=== PATIENT | female | born 1995 | race African-American/Black ===

== ENCOUNTER 2021-06-18 18:01 | Emergency (ER) | payer MEDICAID ==
[~2021-06-18] VITALS: Ht 167.6 cm; Wt 93.0 kg
[2021-06-18] MEDS ORDERED: OLANZAPINE 5MG TABLET ODT PO ONE (19:45)
[2021-06-18] MEDS ORDERED: DIPHENHYDRAMINE 50MG/ML VIAL IM STA (20:28)
[2021-06-18] MEDS ORDERED: OLANZAPINE 10 MG/VIAL IM STA (20:28)
[2021-06-18 23:58] LABS: EOSINOPHILS % 1.3 % (0.0-5.0); HEMATOCRIT. 40.5 % (36.0-48.0); HEMOGLOBIN. 13.3 g/dL (12.0-16.0); LYMPHOCYTES % 34.9 % (20.0-50.0); MEAN CORPUSCULAR HEMOGLOBIN 28.5 pg (28.0-32.0); MEAN CORPUSCULAR VOLUME 86.4 fL (81.0-99.0); MEAN PLATELET VOLUME 7.9 fl (7.4-10.4); MONOCYTES % 7.5 % (2.0-8.0); NEUTROPHILS % 55.3 % (40.0-76.0); PLATELET 290 x1000/uL (130-400); RED BLOOD CELL COUNT 4.69 mill/uL (4.2-5.4); RED CELL DISTRIBUTION WIDTH 14.1 % (11.6-14.6)
[2021-06-19 00:05] LABS: CLARITY URINE CLEAR (CLEAR); COLOR URINE YELLOW (YELLOW); KETONES URINE TRACE (NEGATIVE); LEUKOCYTE ESTERASE URINE TRACE (NEGATIVE); NITRITE URINE NEGATIVE (NEGATIVE); OCCULT BLOOD URINE NEGATIVE (NEGATIVE); PH URINE 7.5 (4.5-8.0); PROTEIN URINE NEGATIVE (NEGATIVE); SPECIFIC GRAVITY URINE 1.027 (1.005-1.030)
[2021-06-19 00:09] LABS: CHLORIDE 108 mEq/L (98-107)
[2021-06-19 00:17] LABS: ETHANOL BLOOD < 10 mg/dL
[2021-06-19 00:24] LABS: METHADONE URINE SCREEN NEGATIVE (NEGATIVE); OPIATES URINE SCREEN NEGATIVE (NEGATIVE)
[2021-06-19 00:25] LABS: *BARBITURATES SCREEN URINE NEGATIVE (NEGATIVE); *BENZODIAZEPINES SCREEN URINE NEGATIVE (NEGATIVE); PHENCYCLIDINE URINE SCREEN NEGATIVE (NEGATIVE)
[2021-06-19 00:35] LABS: *AMPHETAMINES SCREEN URINE PRESUMTIVE POSITIVE (NEGATIVE); *COCAINE SCREEN URINE PRESUMTIVE POSITIVE (NEGATIVE); CANNABINOID URINE SCREEN PRESUMTIVE POSITIVE (NEGATIVE)
[2021-06-19] MEDS ORDERED: POTASSIUM CHLORIDE 20MEQ TABLET SR PO SCH (01:00)
[2021-06-19] MEDS ORDERED: IBUPROFEN 600MG TABLET PO ONE (04:00)
[2021-06-19 13:59] VITALS: BP 118/67
== END 2021-06-19 14:01 | disposition home or self-care (01) ==
LOC: ER 18:01
DX: U07.1 COVID-19 (principal); R45.851 Suicidal ideations; I49.9 Cardiac arrhythmia, unspecified; Z86.59 Personal history of other mental and behavioral disorders; Z88.0 Allergy status to penicillin
CPT/HCPCS: 36415; 80053; 80305; 80307; 80320; 80329; 81003; 81025; 82962; 85025; 87426; 93005; 99285; C9803; U0003; U0005; J1200; J3490; G0480

== ENCOUNTER 2022-01-03 14:49 | Emergency (ER) | payer MEDICAID ==
[~2022-01-03] VITALS: Ht 165.1 cm; Wt 91.0 kg
[2022-01-03] MEDS ORDERED: abilify (14:58)
[2022-01-03] MEDS ORDERED: CLINDAMYCIN 600 MG in DEXTROSE 5% WATER 50 ML IV ONE (15:30)
[2022-01-03] MEDS ORDERED: KETOROLAC 15MG/ML VIAL IV ONE (15:30)
[2022-01-03] MEDS ORDERED: DEXAMETHASONE 4MG/ML 1ML VIAL IV ONE (15:30)
[2022-01-03] MEDS ORDERED: SODIUM CHLORIDE 0.9% 1,000 ML IV ONE (15:30)
[2022-01-03] MEDS ORDERED: ACET-2708 MT (16:13)
[2022-01-03] MEDS ORDERED: IBUP-2029 MT (16:23)
[2022-01-03] MEDS ORDERED: CLIN300C12 MT (16:23)
[2022-01-03 19:10] VITALS: BP 115/87
== END 2022-01-03 19:19 | disposition home or self-care (01) ==
LOC: ER 14:57
DX: J02.9 Acute pharyngitis, unspecified (principal); I10 Essential (primary) hypertension; J45.909 Unspecified asthma, uncomplicated; F15.10 Other stimulant abuse, uncomplicated; F14.10 Cocaine abuse, uncomplicated; Z88.0 Allergy status to penicillin
CPT/HCPCS: 81025; 96365; 96375; 99284; J1100; J1885; J3490; J7030; J7060

== ENCOUNTER 2022-12-23 10:32 | Emergency (ER) | payer MEDICAID ==
[~2022-12-23] VITALS: Ht 167.6 cm; Wt 97.0 kg
[~2022-12-23 10:32] MED LIST: ACET-2708 MT; CLIN-194 MT; IBUP-2029 MT; abilify
[2022-12-23] MEDS ORDERED: ACETAMINOPHEN 325MG TABLET PO ONE (13:00)
[2022-12-23 14:26] VITALS: BP 135/90
[2022-12-23] MEDS ORDERED: DEXAMETHASONE 10 MG/ML VIAL IM ONE (14:30)
[2022-12-23] MEDS ORDERED: KETOROLAC 60MG/2ML VIAL IM ONE (14:30)
[2022-12-23] MEDS ORDERED: IBUP-2028 MT (15:36)
[2022-12-23] MEDS ORDERED: CLINDAMYCIN HCL 150MG CAPSULE PO STA (15:36)
[2022-12-23] MEDS ORDERED: CLIN-194 MT (15:36)
== END 2022-12-23 15:45 | disposition home or self-care (01) ==
LOC: ER 12:25
DX: J02.0 Streptococcal pharyngitis (principal); I10 Essential (primary) hypertension; J45.909 Unspecified asthma, uncomplicated; F14.10 Cocaine abuse, uncomplicated; F15.10 Other stimulant abuse, uncomplicated; Z98.890 Other specified postprocedural states; Z88.0 Allergy status to penicillin
CPT/HCPCS: 87430; 96372; 99284; J1100; J1885; Z7610

== ENCOUNTER 2023-09-17 21:25 | Emergency (ER) | payer MEDICAID ==
[~2023-09-17] VITALS: Ht 154.9 cm; Wt 87.0 kg
[~2023-09-17 21:25] MED LIST changes: +IBUP-2028 MT
[2023-09-17 21:37] VITALS: O2SAT 100
[2023-09-17] MEDS ORDERED: ASPIRIN 81MG TABLET PO ONE (23:00)
[2023-09-17] MEDS ORDERED: NITROGLYCERIN 0.4MG TABLET SL SL PRN (23:00)
[2023-09-18] LABS: BASOPHILS % 0.6 % (0.0-2.0); EOSINOPHILS % 3.1 % (0.0-5.0); HEMATOCRIT. 37.1 % (36.0-48.0); HEMOGLOBIN. 12.2 g/dL (12.0-16.0); LYMPHOCYTES % 35.2 % (20.0-50.0); MEAN CORPUSCULAR HEMOGLOBIN 28.8 pg (28.0-32.0); MEAN CORPUSCULAR HGB CONC 32.9 g/dL (31.0-37.0); MEAN CORPUSCULAR VOLUME 87.6 fL (81.0-99.0); MEAN PLATELET VOLUME 7.3 fl (7.4-10.4); MONOCYTES % 8.9 % (2.0-8.0); NEUTROPHILS % 52.2 % (40.0-76.0); PLATELET 260 x1000/uL (130-400); RED BLOOD CELL COUNT 4.23 mill/uL (4.2-5.4); RED CELL DISTRIBUTION WIDTH 14.1 % (11.6-14.6); WHITE BLOOD COUNT 7.5 x1000/uL (4.5-11.0)
[2023-09-18 00:05] LABS: CHLORIDE 108 mEq/L (98-107); INDEX HEMOLYSI 1 (1-3); INDEX ICTERIC 1 (1-4); INDEX LIPEMIC 1 (1-3); POTASSIUM 4.3 mEq/L (3.5-5.1); SODIUM 139 mEq/L (136-145)
[2023-09-18 00:16] LABS: ALANINE AMINOTRANSFERASE 17 IU/L (13-61); ALBUMIN 3.1 g/dL (3.4-5.0); ASPARTATE AMINOTRANSFERASE 13 IU/L (15-37); BILIRUBIN TOTAL 0.3 mg/dL (0.1-1.0); CALCIUM 8.1 mg/dL (8.5-10.1); CARBON DIOXIDE 31 mEq/L (21-32); CREATININE 0.8 mg/dL (0.6-1.3); GLUCOSE 94 mg/dL (70-105); HCG SCREEN NEGATIVE; NT PRO B-TYPE NATRIURETIC PEP 116 pg/mL (5-125); PROTEIN TOTAL 6.3 g/dL (6.0-8.3); TROPONIN I HIGH SENSITIVITY 5 ng/L (<54); UREA NITROGEN BLOOD 16 mg/dL (7-21)
[2023-09-18 02:38] LABS: TROPONIN I HIGH SENSITIVITY 5 ng/L (<54)
[2023-09-18 07:45] VITALS: BP 121/63; PULSE 72; RESP 15; TEMP 98.1
== END 2023-09-18 07:51 | disposition short-term general hospital (02) ==
LOC: ER 21:25
DX: R07.89 Other chest pain (principal); R45.851 Suicidal ideations; F14.10 Cocaine abuse, uncomplicated; F15.10 Other stimulant abuse, uncomplicated; Z88.0 Allergy status to penicillin
CPT/HCPCS: 80053; 81025; 84703; 83880; 85025; 84484 ×2; 36415 ×2; 71045; 93005 ×2; 99285; Z7610

== ENCOUNTER 2023-09-22 10:31 | Emergency (ER) | payer MEDICAID ==
[~2023-09-22] VITALS: Ht 167.6 cm; Wt 73.0 kg
[2023-09-22 10:42] VITALS: O2SAT 100
[2023-09-22 11:31] LABS: BASOPHILS % 0.4 % (0.0-2.0); HEMATOCRIT. 36.8 % (36.0-48.0); HEMOGLOBIN. 11.8 g/dL (12.0-16.0); LYMPHOCYTES % 20.7 % (20.0-50.0); MEAN CORPUSCULAR HEMOGLOBIN 28.4 pg (28.0-32.0); MEAN CORPUSCULAR VOLUME 88.8 fL (81.0-99.0); MEAN PLATELET VOLUME 7.4 fl (7.4-10.4); MONOCYTES % 8.7 % (2.0-8.0); NEUTROPHILS % 68.2 % (40.0-76.0); PLATELET 252 x1000/uL (130-400); RED BLOOD CELL COUNT 4.15 mill/uL (4.2-5.4); RED CELL DISTRIBUTION WIDTH 14.8 % (11.6-14.6); WHITE BLOOD COUNT 7.2 x1000/uL (4.5-11.0)
[2023-09-22 11:51] VITALS: BP 122/70; PULSE 93; RESP 18; TEMP 98.2
[2023-09-22 12:16] LABS: ALANINE AMINOTRANSFERASE 24 IU/L (10-49); ALBUMIN 3.6 g/dL (3.2-4.8); ASPARTATE AMINOTRANSFERASE 21 IU/L (<34); BILIRUBIN TOTAL 0.4 mg/dL (0.1-1.0); CALCIUM 8.7 mg/dL (8.7-10.4); CARBON DIOXIDE 26 mEq/L (21-32); CHLORIDE 106 mEq/L (98-107); CREATININE 0.7 mg/dL (0.6-1.0); GLUCOSE 79 mg/dL (70-105); POTASSIUM 4.4 mEq/L (3.5-5.1); PROTEIN TOTAL 5.8 g/dL (6.0-8.3); SODIUM 140 mEq/L (136-145); UREA NITROGEN BLOOD 14 mg/dL (9-23)
[2023-09-22 13:11] LABS: ETHANOL BLOOD < 10 mg/dL (<10)
[2023-09-22] MEDS ORDERED: TOPUD PO (14:13)
== END 2023-09-22 15:15 | disposition left against medical advice (07) ==
LOC: ER 10:59
DX: Z00.00 Encounter for general adult medical examination without abnormal findings (principal); M25.512 Pain in left shoulder; M25.511 Pain in right shoulder; F14.10 Cocaine abuse, uncomplicated; F15.10 Other stimulant abuse, uncomplicated; J45.909 Unspecified asthma, uncomplicated; I10 Essential (primary) hypertension; Z88.0 Allergy status to penicillin
CPT/HCPCS: 36415; 73030; 80053; 80320; 85025; 99284; G0480

== ENCOUNTER 2023-11-24 04:37 | Emergency (ER) | payer MEDICAID ==
[~2023-11-24] VITALS: Ht 170.2 cm; Wt 70.0 kg
[~2023-11-24 04:37] MED LIST changes: +TOPUD PO
[2023-11-24 04:38] VITALS: BP 153/104; PULSE 98; RESP 16; TEMP 98.5; O2SAT 98
[2023-11-24 05:17] LABS: BASOPHILS % 0.3 % (0.0-2.0); EOSINOPHILS % 1.4 % (0.0-5.0); HEMATOCRIT. 41.3 % (36.0-48.0); HEMOGLOBIN. 13.6 g/dL (12.0-16.0); LYMPHOCYTES % 33.1 % (20.0-50.0); MEAN CORPUSCULAR HEMOGLOBIN 29.1 pg (28.0-32.0); MEAN CORPUSCULAR HGB CONC 32.9 g/dL (31.0-37.0); MEAN CORPUSCULAR VOLUME 88.4 fL (81.0-99.0); MEAN PLATELET VOLUME 6.8 fl (7.4-10.4); MONOCYTES % 6.4 % (2.0-8.0); NEUTROPHILS % 58.8 % (40.0-76.0); PLATELET 373 x1000/uL (130-400); RED BLOOD CELL COUNT 4.67 mill/uL (4.2-5.4); RED CELL DISTRIBUTION WIDTH 14.3 % (11.6-14.6); WHITE BLOOD COUNT 8.2 x1000/uL (4.5-11.0)
[2023-11-24 05:29] LABS: ACETAMINOPHEN < 2 ug/mL (10-30); ALANINE AMINOTRANSFERASE 35 IU/L (10-49); ALBUMIN 4.7 g/dL (3.2-4.8); ASPARTATE AMINOTRANSFERASE 28 IU/L (<34); BILIRUBIN TOTAL 0.6 mg/dL (0.1-1.0); CALCIUM 9.4 mg/dL (8.7-10.4); CARBON DIOXIDE 24 mEq/L (21-32); CHLORIDE 104 mEq/L (98-107); CREATININE 0.8 mg/dL (0.6-1.0); GLUCOSE 112 mg/dL (70-105); POTASSIUM 3.4 mEq/L (3.5-5.1); SODIUM 138 mEq/L (136-145); UREA NITROGEN BLOOD 14 mg/dL (9-23)
[2023-11-24 05:31] LABS: ETHANOL BLOOD < 10 mg/dL (<10); PROTEIN TOTAL 8.3 g/dL (6.0-8.3)
[2023-11-24] MEDS ORDERED: ELIMC TP (05:57)
[2023-11-24 06:27] LABS: HCG SCREEN NEGATIVE
== END 2023-11-24 06:50 | disposition home or self-care (01) ==
LOC: ER 04:37
DX: B86 Scabies (principal)
CPT/HCPCS: 36415; 80053; 80307; 80320; 80329; 84703; 85025; 99283; G0480